=== PATIENT | female | born 1950 | race Caucasian/White ===

== ENCOUNTER 2024-02-05 13:20 | Outpatient (AMB) | payer MEDICARE, SELFPAY ==
--- NOTE | 2024-02-05 13:21 | A.OFFPC_ITS ---
Vital Signs 02/05/24 13:22 Height 5 ft 2 in Weight 143 lb 4 oz BMI 26.2 BP 132/60 Blood Pressure Location Rt brachial Position Sitting Pulse 92 Pulse Source Pulse Oximeter Pulse Oximetry (%) 100 Oxygen Delivery Method Room Air Intake Visit Reasons: [employer] Allergies No Known Allergies Allergy (Verified 02/05/24 13:24) Tobacco use date assessed: 02/05/24 Fall risk assessment: No Falls in past year Last assessed Fall Risk: 02/05/24 Dental Screening Dental Screen Date: 02/05/24 Did you have a dental visit in the last 12 months?: Yes Did you have a dental problem in the last 6 months where you did not have access to dental care?: No Was dental information given to patient?: Patient has dentist HPI HPI Comments History of Present Illness Details 73 year old female with a past medical h istory of OA, low back pain, seasonal allergies presenting for physical exam Chronic back pain: Saw Dr Ledesma. Underwent surgery Jan 2023. Still has issues with back pain. Has gained weight which she thinks is contributing to back pain Post menopausal hot flashes: On estradiol Preventive: Mammo: 12/2023 Cologuard 2021 s/p hysterectomy in 40s ROS CONSTITUTIONAL: Denies weight loss, fever and chills. HEENT: Denies changes in vision and hearing. RESPIRATORY: Denies SOB and cough. CV: Denies palpitations and CP GI: Denies abdominal pain, nausea, vomiting and diarrhea. : Denies dysuria and urinary frequency. MSK: as above. right knee pain SKIN: Denies rash and pruritus. NEUROLOGICAL: Denies headache PSYCHIATRIC: Denies recent changes in mood. PHYSICAL EXAM: GENERAL: Alert and oriented x 3. NAD EYES: EOMI. Anicteric. HENT: Moist mucous membranes. No scleral icterus. No cervical lymphadenopathy. LUNGS: Clear to auscultation bilaterally. CARDIOVASCULAR: Regular rate and rhythm. No murmur. No JVD. ABDOMEN: Soft, non-tender +bs EXTREMITIES: No edema. Non-tender. SKIN: No rashes or lesions. Warm. NEUROLOGIC: No focal neurological deficits. CN II-XII grossly intact PSYCHIATRIC: Cooperative. Appropriate mood and affect PFSH Surgical History H/O: hysterectomy H/O Spinal surgery Family History Father Leukemia Paternal Aunt Leukemia Paternal Aunt Hodgkins lymphoma Paternal Aunt Breast cancer Social History Household Members: Spouse Housing: House Alcohol intake: current Alcohol intake frequency: a few times a week Alcohol type: wine Patient Tobacco Use Status: Former Tobacco user Current occupational status: retired Cognitive needs: No Hearing needs: No Vision needs: Yes Questionnaire PHQ-9 Over the last 2 weeks, how often have you been bothered by any of the following problems? 1. Little interest or pleasure in doing things: not at all 2. Feeling down, depressed, or hopeless: not at all 3. Trouble falling or staying asleep, or sleeping too much: not at all 4. Feeling tired or having little energy: not at all 5. Poor appetite or overeating: not at all 6. Feeling bad about yourself - or that you are a failure or have let yourself or your family down: not at all 7. Trouble concentrating on things, such as reading the newspaper or watching television: not at all 8. Moving or speaking so slowly that other people could have noticed. Or the opposite - being so fidgety or restless that you have been moving around a lot more than usual: not at all 9. Thoughts that you would be better off or of hurting yourself in some way: not at all Total score: 0 Depression Screening Interpretation: Negative Depression Screening Done: Yes 04070 - PHQ-9 Billing: Yes Source: Developed by Drs. Rogelio Garza, Jennie Holloway, Jacob Rivas and colleagues, with an educational sj from [employer]. Thrive Questionnaire Date Thrive assessed: 02/05/24 I am a: Patient What is your living situation today?: I have a steady place to live Within the past 12 months, did the food you bought not last and you didn't have the money to get more?: Never true Within the past 12 months, did you worry whether your food would run out before you got money to buy more?: Never true Do you have trouble paying for medicines?: No Do you have trouble getting transportation to medical appointments?: No Do you have trouble paying your heating and electricity bill?: No Do you have trouble taking care of your child, family member or friend?: No Do you have trouble with day-to-day activities such as bathing, preparing meals, shopping, managing finances, etc.?: No Are you currently unemployed and looking for a job?: No Are you interested in more education?: No Please select the resources that you would like help with: None Currently or been in a relationship where the following occur: No concerns reported THRIVE Score: 0 AUDIT C Alcohol Use Questionnaire (AUDIT-C) 1. How often do you have a drink containing alcohol?: 4 or more times a week 2. How many drinks containing alcohol do you have on a typical day when you are drinking?: 1 or 2 3. How often do you have six or more drinks on one occasion?: Never Total Score: 4 TY-7 AMB Questionnaire TY-7 Date TY - 7 assessed: 02/05/24 Feeling nervous, anxious, or on edge: 1 = Several days Not being able to stop or control worryin = Not at all Worrying too much about different things: 1 = Several days Trouble relaxin = Several days Being so restless that it is hard to sit still: 0 = Not at all Becoming easily annoyed or irritable: 1 = Several days Feeling afraid as if something awful might happen: 0 = Not at all Total TY-7 score (0-4 normal; 5-9 mild; 10-14 moderate; 15-21 severe): 4 Source: Developed by Drs. Rogelio Garza, Jennie Holloway, Jacob Rivas and colleagues, with an educational sj from [employer]. TY-7 Assessment Billing TY-7 Assessment Tool: TY-7 Assessment 71773 Physical exam (Primary Care) Vital Signs: Last Vital Signs Pulse 92 02/05/24 13:22 BP 132/60 02/05/24 13:22 Pulse Ox 100 02/05/24 13:22 Oxygen Delivery Method Room Air 02/05/24 13:22 BMI result Body Mass Index 26.2 Tobacco/Smoking Status: Tobacco use Status Tobacco use date assessed 02/05/24 02/05/24 13:30 Patient Tobacco Use Status Former Tobacco user 12/09/24 13:30 PHQ-9: PHQ-9 Score PHQ-9: Total score 0 02/05/24 13:41 Depression Screening Interpretation: Negative Thrive Assessment: Date of Thrive Assessment Date Thrive assessed 02/05/24 02/05/24 13:30 Currently or been in a relationship where the following occur: No concerns reported Coding Level of Care Code Est Pt Prev Care >65y(05043) Diagnoses Physical exam Z00.00 Fatigue, unspecified type R53.83 Fatigue type: unspecified Chronic pain of right knee M25.561; G89.29 Chronicity: chronic Weight gain R63.5 Additional Codes TY-7 Assessment Billing - TY-7 Assessment Tool: TY-7 Assessment [id number] ([id number]) PHQ-9 - 24562 - PHQ-9 Billing: Yes ([id number]) Assessment & Plan Assessment & Plan (1) Physical exam: Code(s): Z00.00 - Encounter for general adult medical examination without abnormal findings Category: Medical Plan: Reestablish care Physical exam. Preventive measures reviewed (2) Fatigue: Code(s): R53.83 - Other fatigue Category: Medical Qualifiers: Fatigue type: unspecified Qualified Code(s): R53.83 - Other fatigue Plan: labs ordered (3) Right knee pain: Code(s): M25.561 - Pain in right knee Category: Medical Qualifiers: Chronicity: chronic Qualified Code(s): M25.561 - Pain in right knee; G89.29 - Other chronic pain Plan: stable. has increased with weight gain (4) Weight gain: Code(s): R63.5 - Abnormal weight gain Category: Medical Plan: wegovy sent Orders: Orders Complete Blood Count Auto Diff 02/05/24 M25.561 - Pain in right knee, R53.83 - Other fatigue, R63.5 - Abnormal weight gain, Z13.0 - Encounter for screening for diseases of the blood and blood-forming organs and certain disorders involving the immune mechanism Comprehensive Met. Panel 02/05/24 M25.561 - Pain in right knee, R53.83 - Other fatigue, R63.5 - Abnormal weight gain, Z13.0 - Encounter for screening for diseases of the blood and blood-forming organs and certain disorders involving the immune mechanism Lipid Panel 02/05/24 M25.561 - Pain in right knee, R53.83 - Other fatigue, R63.5 - Abnormal weight gain, Z13.0 - Encounter for screening for diseases of the blood and blood-forming organs and certain disorders involving the immune mechanism, Z13.220 - Encounter for screening for lipoid disorders TSH reflex Free T4 02/05/24 M25.561 - Pain in right knee, R53.83 - Other fatigue, R63.5 - Abnormal weight gain, Z13.0 - Encounter for screening for diseases of the blood and blood-forming organs and certain disorders involving the immune mechanism Referrals Cologuard Test Z12.11 - Encounter for screening for malignant neoplasm of colon, Z12.12 - Encounter for screening for malignant neoplasm of rectum Medications: New estradiol 0.5 mg PO DAILY 90 tabs 3RF Wegovy (semaglutide (weight loss)) administer weeks 1 through 4 of therapy 0.25 mg (0.5 mL) subcut QWEEK 2 mL 0RF NS R63.5 - Abnormal weight gain
[2024-02-05 13:22] VITALS: BP 132/60; PULSE 92; O2SAT 100; BMI 26.2
== END 2024-02-05 14:07 | disposition home or self-care (01) ==
PROVIDERS: PCP Internal Medicine; Visit Provider Internal Medicine
DX: R53.83 Other fatigue (principal); M25.561 Pain in right knee; G89.29 Other chronic pain; R63.5 Abnormal weight gain

== ENCOUNTER → 2024-02-05 13:20 | Outpatient (BNVA) | payer MEDICARE, SELFPAY | PROVIDERS: PCP Internal Medicine; Visit Provider Internal Medicine | DX: Z00.01 Encounter for general adult medical examination with abnormal findings (principal); R53.83 Other fatigue; G89.29 Other chronic pain; M25.561 Pain in right knee; R63.5 Abnormal weight gain | CPT/HCPCS: 96127; 99212 ==

== ENCOUNTER 2025-02-07 11:57 | Outpatient (AMB) | payer MEDICARE, SELFPAY ==
--- NOTE | 2025-02-07 12:00 | MHC.PC.OV ---
Intake Visit Reasons: mawv Allergies No Known Allergies Allergy (Verified 02/05/24 13:24) Tobacco use date assessed: 02/05/24 Dental Screening Dental Screen Date: 02/05/24 [facility] Surgical History H/O: hysterectomy H/O Spinal surgery Family History Father Leukemia Paternal Aunt Leukemia Paternal Aunt Hodgkins lymphoma Paternal Aunt Breast cancer Social History Household Members: Spouse Housing: House Alcohol intake: current Alcohol intake frequency: a few times a week Alcohol type: wine Patient Tobacco Use Status: Former Tobacco user Current occupational status: retired Cognitive needs: No Hearing needs: No Vision needs: Yes Questionnaire Thrive Questionnaire Date Thrive assessed: 02/05/24 AUDIT C Alcohol Use Questionnaire (AUDIT-C) 2. How many drinks containing alcohol do you have on a typical day when you are drinking?: 1 or 2 3. How often do you have six or more drinks on one occasion?: Never Total Score: 0 TY-7 AMB Questionnaire TY-7 Date TY - 7 assessed: 02/05/24 Source: Developed by Drs. Rogelio Garza, Jennie Holloway, Jacob Rivas and colleagues, with an educational sj from [employer]. Physical exam (Primary Care) Tobacco/Smoking Status: Tobacco use Status Tobacco use date assessed 02/05/24 02/05/24 13:30 Patient Tobacco Use Status Former Tobacco user 02/05/24 13:30 Thrive Assessment: Date of Thrive Assessment Date Thrive assessed 02/05/24 02/05/24 13:30 Coding
--- NOTE | 2025-02-07 12:04 | A.OFFVIS_ITS ---
Intake Vital Signs 02/07/25 12:19 Height 5 ft 2 in Weight 137 lb 8 oz BMI 25.1 BP 134/70 Blood Pressure Location Lt brachial Position Sitting Respiration 14 Pulse 76 Pulse Source Pulse Oximeter Temp 97.6 F Temp Source Oral Pulse Oximetry (%) 96 Oxygen Delivery Method Room Air Intake Visit Reasons: mawv Intake Note: Medical wellness visit. Healthcare Insurance Sales Agent Required: No Allergies No Known Allergies Allergy (Verified 02/07/25 12:38) Medication List - Last Reconciled 02/07/25 by JACQUELINE AmayaP-BC estradiol 0.5 mg PO DAILY meloxicam 15 mg PO DAILY timolol maleate 0.5% drps ophthalmic (eye) triamcinolone acetonide 0.1% 1 appl topical DAILY HPI HPI Comments History of Present Illness Details Here today for AWV. The Medicare Annual Wellness Visit (AWV) is a yearly appointment with a health professional to identify health risks and help reduce them and to create or update a personalized prevention plan. During a Medicare AWV, health professionals should also review any current opioid prescriptions, detect any cognitive impairment, and establish or update medical and family history. 74 year old female with a past medical h istory of OA, low back pain s/p back surgery 2022 Dr Ledesma, postmenopausal hot flashes, seasonal allergies, glaucoma, urinary incont SurgHx: s/p back surgery, Yobani FHx: Y SocHx: Y Health Maintenance: See scanned preventative medicine assessment with personalized health plan and screening schedule. Colon: cologaurd 2024 negative Mammo 12/2023, has appt 02/2025 DEXA reports normal a few years ago PAP NA Vaccines: Tdap 2021, Shingles UTD, declined flu 02/07/25, needs Prevnar 20 & advised to get at pharmacy AAA screen: NA EKG: NSR Te[place]ak of Care: as documented in chart Visual Acuity: wears glasses last exam 11/2024 Hearing Screening: no issues ACP: does not have HCP or MOLST, forms provided today along with education and 5 wishes Dietary/Nutrition/Exercise Edu provided: Y During the course of the visit the patient was educated and counseled about appropriate screening and preventative services. Patient instructions were provided to the patient in written or electronic format. I have reviewed and verified the above information. History of Present Illness The patient is a 74-year-old female presenting for an annual Medicare wellness visit. Bilateral knee osteoarthritis: - The patient has bilateral knee osteoar thritis, described as [id number]. - She is currently in the middle of a se adriana of gel shot injections, with one remaining. - The pain limits her ability to perform exercises like squats and walking with friends. - She plans to have knee replacement tomás jose next year, possibly in February. - She takes meloxicam as needed for the pain. Low back pain, status post surgery: - The patient has a history of low back pain and underwent back surgery in 2022. Postmenopausal symptoms: - She experiences severe postmenopausal hot flashes, for which she uses estradiol. - The estradiol has been effective in ma naging her symptoms. - She had a total hysterectomy in her 40 s and stopped seeing a supervisor stone at age 72. Glaucoma: - The patient has glaucoma and uses estela lol eye drops. - She had her last eye exam about two mo nths ago. Urinary incontinence: - The patient reports some urinary incon tinence and leakage, which she finds embarrassing. - She sometimes wears a pad for protecti on. - She also experiences symptoms of urina ry urgency. Weight management: - The patient has experienced weight flu ctuations, gaining weight last year, then losing some, and gaining it back again. - Her current weight is 137 pounds. - Her ability to exercise is limited by her knee pain. - A prior request for Wegovy was denied by her insurance. Past Medical History - Osteoarthritis - Low back pain - Postmenopausal hot flashes - Seasonal allergies - Glaucoma Past Surgical History - Back surgery in 2022 - Total hysterectomy in her 40s Social History - Employment: The patient is retired. 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 - Family status: She has a and g randchildren. - Vaccinations: Declines annual influenz a vaccination and has not received the recent COVID-19 vaccine. - Functional Status: Reports knee pain l imits her ability to walk, exercise, and garden. Health Maintenance - Refilled prescriptions for estradiol a nd triamcinolone 0.1% ointment. - Advised to obtain the Pneumococcal 20 vaccine at the pharmacy. - Patient declines influenza and COVID-1 9 vaccines at this time. - Patient will proceed with scheduled ma mmogram in February. Review of Systems - Constitutional: Denies depressive symp toms but questions benefit of an antidepressant. - Endocrine: Reports severe postmenopaus al hot flashes, which are well- controlled with estradiol. - Musculoskeletal: Reports bilateral kne e pain, described as [id number], limiting activity. - Genitourinary: Reports urinary inconti nence with leakage and urgency. - Gastrointestinal: Reports normal bowel movements. - Neurological: Reports memory that com es and goes but is fine now. - Eyes: Reports glaucoma. - Ears: Denies any problems or concerns with hearing. Physical Exam General: Well developed, well nourished, in no acute distress. Appears stated age. Head: Normocephalic, atraumatic. Eyes: Pupils are equal, round and reactive to light and accommodation. Conjunctivae are clear. Scleras nonicteric bilat. Vision grossly normal. Patient has glaucoma and is on timolol. Ears: TMs clear AU, EACS WNL. Hearing is very good. Nose: Patent, without discharge. Neck: No carotid bruit bilat. Supple, no adenopathy or thyromegaly. Breast: Edu on SBE Lungs: Clear to auscultation bilaterally. No rales, rhonchi or wheeze noted. Good air flow in all zavala. Heart: Regular rate and rhythm. No murmurs, click, rubs or gallops are noted. EKG shows normal sinus rhythm. Abdomen: Bowel sounds present in all quadrants. The abdomen is soft, nontender, with no masses or organomegaly noted. No hernias are noted. : Deferred. Reviewed recommendations for routine LAND ACQUISITION MANAGER. Patient reports urinary incontinence Pulses: Peripheral pulses are equal and palpable bilaterally. Extremities: No clubbing, cyanosis nor edema is noted. Patient reports visible veins on the left side but no associated pain. Neurologic: Gait and station normal. Cranial Nerves 2-12 intact. Motor strength grossly symmetrical and intact. No sensory loss. Balance normal. Skin: No rashes, ulcers, or lesions noted. Turgor is good. Skin color is good. Hair and nails are without abnormalities. Sterling angiomas noted. Psych: Normal eye contact, affect and mood appropriate, and normal interactions. Patient is alert and appropriate to context. Results - Labs: A1c is 5.1%. - Tests and Diagnostics: EKG shows wong l sinus rhythm. Medical Decision Making The patient is a 74-year-old female here for her Medicare annual wellness visit. Her primary issues include significant bilateral knee osteoarthritis, for which she is receiving gel injections and is planning a total knee replacement next year. Pain from this condition limits her activity, which complicates weight management. She reports symptoms of urinary incontinence with urgency, which is bothersome. Given her symptoms and preference, we will initiate a trial of Myrbetriq, starting at the lowest dose. If this is not effective or tolerated, a referral to urology will be made, as many new treatments are available. The patient is up to date on most health maintenance but is due for a Pneumococcal 20 vaccine, which she will be advised to get at a pharmacy. Screening labs including a CMP, lipid panel, and vitamin D will be performed today to monitor her overall health. Advance care planning was discussed, and the patient was provided with resources to complete a healthcare proxy and consider her wishes. She inquired about routine antidepressant use after age 60, but as there is no guideline and she does not report depressive symptoms, this is not indicated; instead, we will review her labs for other contributors to her symptoms. She reports friend and sister are on meds they like, she will inquire about this and if interested in starting, send PCP a message. Plan Health Maintenance: - The patient is taking triamcinolone 0. 1% ointment, which will be refilled. - Lab work is planned for today to scree n for cholesterol and kidney function. - Her last bone density scan was a coupl e of years ago and was normal. - A mammogram is scheduled for February. - She has never had a flu shot and decli ace it today. - She has not received the recent COVID- 19 vaccine. - She has had two of the three recommend ed pneumococcal vaccines and is due for the Pneumovax 20. - Her tetanus and shingles vaccinations are up-to-date. - Her last Cologuard was in 2024 and was negative. - Her A1c today was 5.1%, indicating no diabetes or prediabetes. - Today's EKG showed a normal sinus rhyt hm. - She has a history of low iron and anem ia. 1. Medicare Annual Wellness Visit - Reviewed health maintenance, including vaccinations and cancer screenings. - Ordered screening labs including CMP, lipid panel, and vitamin D. - Performed a physical exam. - Discussed and provided resources for a dvance care planning, including healthcare proxy and the Five Wishes booklet. 2. Osteoarthritis Of Knee, Bilateral - Patient is currently receiving gel inj ections for symptomatic relief. - She continues to use meloxicam as need ed for pain. - Patient is considering total knee repl acement surgery next year. 3. Urinary Incontinence - Will start a trial of Myrbetriq 25 mg once daily. - Discussed side effects, primarily dry mouth. - Advised patient to stop the medication if side effects are intolerable and message for a urology referral if needed. - Prescription sent to [facility]. Patient Instructions - Your prescriptions for triamcinolone o intment and Myrbetriq have been sent to your pharmacy. - Please go to the lab in the clinic [facility] to have your blood drawn for a CMP (to check kidney function), a cholesterol panel, and a vitamin D level. - Take one tablet of Myrbetriq 25 mg by mouth once a day for your bladder symptoms. This may cause dry mouth. If the side effect is too bothersome, or if the medication is not helping, please stop taking it and send us a message through the patient portal. - When you are at the pharmacy, please a sk for the Pneumovax 20 (Pneumococcal 20) vaccine. This is an important shot to protect you against pneumonia. - Continue taking your current medicatio ns, including estradiol for hot flashes, timolol for glaucoma, and meloxicam as needed for knee pain. - Please review the paperwork we gave yo u about advance directives (The Five Wishes) and a healthcare proxy. Consider completing these forms and bring them to your next visit. - Keep your appointment for a mammogram in February. - We will send your lab results to you t julianna the patient portal. Consent Patient was informed and verbally consented to the use of an ambient scribe for clinic note documentation during this visit. An additional 30 minutes was spent addressing the problem(s) noted at todays visit. This includes time spent before the visit reviewing the chart, time spent during the visit, and time spent after the visit on documentation reviewing laboratory results, diagnostic imaging, medications, performing a medically necessary evaluation, counseling on diagnoses, care coordination, ordering appr opriate tests, ordering appropriate medications, review of tests performed by other providers, reporting test results with the patient, communication with other healthcare providers. [facility] Medical History (Updated 02/07/25 @ 14:49 by DENISSE Amaya) Medicare annual wellness visit, subsequent (~02/07/25) Surgical History (Updated 02/06/25 @ 10:15 by DENISSE Amaya) H/O Spinal surgery H/O: hysterectomy Family History Father Leukemia Paternal Aunt Leukemia Paternal Aunt Hodgkins lymphoma Paternal Aunt Breast cancer Social History Household Members: Spouse Housing: House Alcohol intake: current Alcohol intake frequency: a few times a week Alcohol type: wine Patient Tobacco Use Status: Former Tobacco user Current occupational status: retired Cognitive needs: No Hearing needs: No Vision needs: Yes Questionnaire Medicare Wellness Checkup What [age] What gender do you identify with?: female During the past 4 weeks, how much have you been bothered by emotional problems such as feeling anxious, depressed, irritable, sad or downhearted, and blue?: not at all During the past 4 weeks, has your physical & emotional health limited your social activities with family, friends, neighbors, or groups?: not at all During the past 4 weeks, how much bodily pain have you generally had?: moderate pain During the past 4 weeks, was someone available to help you if you needed & wanted help?: yes, as much as I wanted During the past 4 weeks, what was the hardest physical activity you could do for at least 2 minutes?: moderate Can you get to places out of walking distance without help? (For eg., can you travel alone on buses, taxis or drive your car?): Yes Can you go shopping for groceries or clothes without someone's help?: Yes Can you prepare your own meals?: Yes Can you do your housework without help?: Yes Because of any health problems, do you need the help of another person with your personal care needs such as eating, bathing, dressing or getting around the house?: No Can you handle your own money without help?: Yes During the past 4 weeks, how would you rate your health in general?: fair During the past 4 weeks how have things been going for you?: good & bad parts about equal Are you having difficulties driving your car?: no Do you always fasten your seat belt when you are in a car?: yes, usually During past 4 weeks, have you been bothered by the following: never: Falling or dizzy when standing up, Sexual problems?, Trouble eating well?, Teeth or denture problems?, Problems using the telephone? and Tiredness or fatigue? Have you fallen 2 or more times in the past year?: No Are you afraid of falling?: No Are you a smoker?: no During the past 4 weeks, how many drinks of wine, beer, or other alcoholic beverages did you have?: 2-5 drinks per week Do you exercise for about 20 minutes 3 or more times a week?: yes, some of the time Have you been given information to help with the following?: yes: Hazards in your house that might hurt you? and yes: Keeping track of your medications? How often do you have trouble taking medicines the way you have been told to take them?: I always take medicine as prescribed How confident are you that you can control & manage most of your health problems?: very confident What is your race?: White Activity of Daily Living Bathing - sponge bath, tub bath or shower: receives no assistance (gets in/out by self, if usual bathing means Dressing - getting clothes from closets & drawers, including inner/outer garments & fasteners.: gets clothes & gets completely dressed without help Toileting - going to the 'toilet room' for urine/bowel elimination & cleaning self/arranging clothes: goes to toilet room, cleans self, arranges clothes without help Transfer: moves in & out of bed and chair without help (may use support object) Continence: controls urination/bowel movements completely by self Feeding: feeds self without help Total Score: 0 Information obtained from: patient Using telephone: independent Traveling: independent Shopping: independent Preparing meals: independent Housework: independent Taking medicine: independent Managing money: independent PHQ-9 Over the last 2 weeks, how often have you been bothered by any of the following problems? 1. Little interest or pleasure in doing things: not at all 2. Feeling down, depressed, or hopeless: not at all 3. Trouble falling or staying asleep, or sleeping too much: not at all 4. Feeling tired or having little energy: not at all 5. Poor appetite or overeating: not at all 6. Feeling bad about yourself - or that you are a failure or have let yourself or your family down: not at all 7. Trouble concentrating on things, such as reading the newspaper or watching television: several days 8. Moving or speaking so slowly that other people could have noticed. Or the opposite - being so fidgety or restless that you have been moving around a lot more than usual: not at all 9. Thoughts that you would be better off or of hurting yourself in some way: not at all Total score: 1 Depression Screening Interpretation: Negative Depression Screening Done: Yes 83715 - PHQ-9 Billing: Yes Source: Developed by Drs. Rogelio Garza, Jennie Holloway, Jacob Rivas and colleagues, with an educational sj from [email or web address]. Physical Exam Vital Signs: Last Vital Signs Temp 97.6 F 02/07/25 12:19 Pulse 76 02/07/25 12:19 Resp 14 02/07/25 12:19 BP 134/70 02/07/25 12:19 Pulse Ox 96 02/07/25 12:19 Oxygen Delivery Method Room Air 02/07/25 12:19 BMI result Body Mass Index 25.1 Office Procedures Vision Screening Right Eye: 20/40 Left Eye: 20/20 Bilateral: 20/20 96240 - Vision Screening EKG [id number]-[id number], Complete Results AMB Hemoglobin A1c AMB Hemoglobin A1c 5.1 % Last Edit by Charo Mary CMA on 02/07/25 12:26 Results Reviewed Results Reviewed: Laboratory Last Values Hgb A1c (Clinic) 5.1 % (4.0-6.0) 02/07/25 12:24 Assessment & Plan Assessment & Plan (1) Medicare annual wellness visit, subsequent: Onset Date: ~02/07/25 Code(s): Z00.00 - Encounter for general adult medical examination without abnormal findings (2) History of colonoscopy: Onset Date: ~2024 Comment: negative cologaurd 2021 & 2024 Code(s): Z98.890 - Other specified postprocedural states (3) Screening for hyperlipidemia: Code(s): Z13.220 - Encounter for screening for lipoid disorders (4) Menopause: Code(s): Z78.0 - Asymptomatic menopausal state (5) Laboratory exam ordered as part of routine general medical examination: Code(s): Z00.00 - Encounter for general adult medical examination without abnormal findings (6) Influenza vaccination declined: Onset Date: ~02/07/25 Code(s): Z28.21 - Immunization not carried out because of patient refusal (7) Urinary incontinence: Code(s): R32 - Unspecified urinary incontinence Qualifiers: Urinary Incontinence type: mixed stress and urge incontinence Qualified Code(s): N39.46 - Mixed incontinence (8) Glaucoma: Code(s): H40.9 - Unspecified glaucoma Qualifiers: Glaucoma type: other (9) History of mammogram: Onset Date: ~12/2023 Code(s): Z92.89 - Personal history of other medical treatment Plan . Orders: Orders AMB Hemoglobin A1c Today Z00.00 - Encounter for general adult medical examination without abnormal findings Comprehensive Met. Panel Today Z00.00 - Encounter for general adult medical examination without abnormal findings, Z13.220 - Encounter for screening for lipoid disorders, Z78.0 - Asymptomatic menopausal state Vitamin D 25-OH Total Today Z00.00 - Encounter for general adult medical examination without abnormal findings, Z13.220 - Encounter for screening for lipoid disorders, Z78.0 - Asymptomatic menopausal state AMB Vision Screening Today Z00.00 - Encounter for general adult medical examination without abnormal findings Lipid Panel Today Z00.00 - Encounter for general adult medical examination without abnormal findings, Z13.220 - Encounter for screening for lipoid disorders, Z78.0 - Asymptomatic menopausal state Medications: New triamcinolone acetonide 0.1% 1 appl topical DAILY 15 grams 2RF mirabegron ER (Myrbetriq) 25 mg PO DAILY 90 tabs 0RF Discontinued Wegovy (semaglutide (weight loss)) administer weeks 1 through 4 of therapy Discontinued Reason: Insurance Denied 0.25 mg (0.5 mL) subcut QWEEK 2 mL 0RF NS R63.5 - Abnormal weight gain Patient Instructions: Health screenings for women You should visit your health care provider from time to time, even if you are healthy. The purpose of these visits is to: Screen for medical issues Assess your risk for future medical problems Encourage a healthy lifestyle Update vaccinations and other preventive care services Help you get to know your provider in case of an illness Information Even if you feel fine, you should still see your provider for regular checkups. These visits can help you avoid problems in the future. For example, the only way to find out if you have high blood pressure is to have it checked regularly. High blood sugar and high cholesterol levels also may not have any symptoms in the early stages. A simple blood test can check for these conditions. There are specific times when you should see your provider or receive specific health screenings. The [place] Preventive Services Task Force publishes a list of recommended screenings. Below are screening guidelines for women ages 18 to 39. BLOOD PRESSURE SCREENING Your blood pressure should be checked at least once every 3 to 5 years if: Your blood pressure is in the normal range (top number less than 120 mm Hg and bottom number less than 80 mm Hg) You don't have risk factors for high blood pressure Ask your provider if you need your blood pressure checked more often if: The top number is 120 to 129 mm Hg or the bottom number is 70 to 79 mm Hg You have diabetes, heart disease, kidney problems, are overweight, or have certain other health conditions You have a first-degree relative with high blood pressure You are Black You had high blood pressure during a If the top number is 130 mm Hg or greater or the bottom number is 80 mm Hg or greater, this is considered stage 1 hypertension. Schedule an appointment with your provider to learn how you can reduce your blood pressure. Watch for blood pressure screenings in your area. Ask your provider if you can stop in to have your blood pressure checked. BREAST CANCER SCREENING Experts do not agree about the benefits of breast self-exams in finding breast cancer or saving lives. Talk to your provider about what is best for you. A screening mammogram is not recommended for most women under age 40. Your provider may discuss and recommend mammograms, MRI scans, or ultrasounds if you have an increased risk for breast cancer, such as: A mother or sister who had breast cancer at a young age (most often starting screening earlier than the age the close relative was diagnosed) You carry a high-risk genetic marker CERVICAL CANCER SCREENING Cervical cancer screening should start at age 21 years unless your provider advises otherwise. After the first test: Women ages 21 through 29 should have a Pap test every 3 years. Exoprts do not agree on whether HPV testing is recommended for this age group. Women ages 30 through 65 should be screened with either a Pap test every 3 years or the HPV test every 5 years or both tests every 5 years (called cotesting ). Women who have been treated for precancer (cervical dysplasia) should continue to have Pap tests for 20 years after treatment or until age 65, whichever is katty tu. If you have had your uterus and cervix removed (total hysterectomy), and you have not been diagnosed with cervical cancer or precancer (high grade cervical neoplasia), you do not need cervical cancer screening. CHOLESTEROL SCREENING Cholesterol screening should begin at: Age 45 for women with no known risk factors for coronary heart disease Age 20 for women with known risk factors for coronary heart disease Repeat cholesterol screening should take place: Every 5 years for women with normal cholesterol levels More often if changes occur in lifestyle (including weight gain and diet) More often if you have diabetes, heart disease, kidney problems, or certain other conditions DIABETES SCREENING You should be screened for diabetes starting at age 35 and then repeated every 3 years if you have no risk factors for diabetes. Screening may need to start earlier and be repeated more often if you have other risk factors for diabetes, such as: You have a first degree relative with diabetes. You are overweight or have obesity. You have high blood pressure, prediabetes, or a history of heart disease. Screening for diabetes should be done if you are planning to become and you are overweight and have other risk factors such as high blood pressure. DENTAL EXAM Go to the dentist once or twice every year for an exam and cleaning. Your dentist will evaluate if you need more frequent visits. EYE EXAM Have an eye exam every 5 to 10 years before age 40. If you have vision problems, have an eye exam every 2 years or more often if recommended by your provider. You should have an eye exam that includes an examination of your retina (back of your eye) at least every year if you have diabetes. IMMUNIZATIONS Commonly needed vaccines include: Flu shot: get one every year. COVID-19 vaccine: ask your provider what is best for you. Tetanus-diphtheria and acellular pertussis (Tdap) vaccine: have one at or after age 19 as one of your tetanus-diphtheria vaccines if you did not receive it as an adolescent. Tetanus-diphtheria: have a booster (or Tdap) every 10 years. Varicella vaccine: receive 2 doses if you never had chickenpox or the varicella vaccine. Hepatitis B vaccine: receive 2, 3, or 4 doses, depending on your exact circumstances. Measles, mumps, and rubella (MMR) vaccine: receive 1 to 2 doses if you are not already immune to MMR. Your provider can tell you if you are immune. Ask your provider about the human papillomavirus (HPV) vaccine if: You have not received the HPV vaccine in the past You have not completed the full vaccine series (you should catch up on this shot) Ask your provider if you should receive other immunizations if you have certain health problems that increase your risk for some diseases such as pneumonia. INFECTIOUS DISEASE SCREENING Women who are sexually active should be screened for chlamydia and gonorrhea up until age 25. Women 25 years and older should be screened for chlamydia and gonorrhea if at high risk. Screening for hepatitis C: All adults ages 18 to 79 should get a one-time test for hepatitis C. people should be screened at every . Screening for human immunodeficiency virus (HIV): All people ages 15 to 65 should get a one-time test for HIV. Depending on your lifestyle and medical history, you may also need to be screened for infections such as syphilis and HIV, as well as other infections. PHYSICAL EXAM All adults should visit their provider from time to time, even if they are healthy. The purpose of these visits is to: Screen for disease Assess your risk of future medical problems Encourage a healthy lifestyle Update your vaccinations and other preventive care services Maintain a relationship with a provider in case of an illness Your height, weight, and BMI should be checked at every exam. During your exam, your provider may ask you about: Depression and anxiety Diet and exercise Alcohol and tobacco use Safety issues, such as using seat belts, smoke detectors, and intimate partner violence Your medicines and risk for interactions SKIN SELF-EXAM Your provider may check your skin for signs of skin cancer, especially if you're at high risk, such as if you: Have had skin cancer before Have close relatives with skin cancer Have a weakened immune system OTHER SCREENING Talk with your provider about colon cancer screening if you have a strong family history of colon cancer or polyps, or if you have had inflammatory bowel disease or polyps yourself. Routine bone density screening of women under 40 is not recommended. Quality Reporting (2019) Adult ([facility] 138/04/20/68) Smoking risk assessment performed?: Yes Patient Tobacco Use Status: Former Tobacco user Depression screening performed: Yes Screen Results: Yes Negative screen Systolic BP not done?: No BMI screening not done: No Sexual Activity Screening ([facility] 153) Sexually active?: Yes Immunizations ([facility] 147, 117) Annual Influenza Vaccine: Yes Measles Antibody Test: No Mumps Antibody Test: No Rubella Antibody Test: No Varicella Antibody Test: No Anti Hepatitis A IgG Antigen test: No Anti Hepatitis B Virus Surface Ab test: No Fall Risk Screening ([facility] 139) Last assessed Fall Risk: 02/07/25 Fall risk assessment: No Falls in past year Dementia Assessment ([facility] 149) Cognitive assessment recorded: Yes Assessment of cognition with standardized tool: Yes Depression/Bipolar (159/160/161/177) PHQ-9: Total score: 1 Ophthalmol:Cataracts Visual Acuity (133) Visual acuity exam performed: Yes Coding Level of Care Code Medicare Subsequent (G0439) Est Pt Level 4 (08975) Diagnoses Medicare annual wellness visit, subsequent Z00.00 History of colonoscopy Z98.890 Screening for hyperlipidemia Z13.220 Menopause Z78.0 Laboratory exam ordered as part of routine general medical examination Z00.00 Influenza vaccination declined Z28.21 Mixed stress and urge urinary incontinence N39.46 Urinary Incontinence type: mixed stress and urge incontinence Glaucoma H40.9 Glaucoma type: other History of mammogram Z92.89 CPT Codes Advance Care Planning - Time spent: 16-45 minutes ([id number]) Vision Screening - Vision Screenin - Vision Screening ([id number]) EKG - CPT: 51796-[id number], Complete ([id number]) Additional Codes PHQ-9 - 88225 - PHQ-9 Billing: Yes ([id number]) Advance Care Planning Advance Care Planning discussion: Exists, not on file Date of discussion: 02/07/25 Who was present: self Forms completed: Health Care Proxy, MOLST and Living will Time spent: 16-45 minutes Actual minutes spent: 16
[2025-02-07 12:19] VITALS: BP 134/70; PULSE 76; RESP 14; TEMP 36.4; O2SAT 96; BMI 25.1
== END 2025-02-07 13:04 | disposition home or self-care (01) ==
LOC: HO.HMCFM 11:58
PROVIDERS: PCP Internal Medicine; Visit Provider Nurse Practitioner Family
DX: Z00.00 Encounter for general adult medical examination without abnormal findings (principal); N39.46 Mixed incontinence; H40.9 Unspecified glaucoma; Z78.0 Asymptomatic menopausal state; Z28.21 Immunization not carried out because of patient refusal

== ENCOUNTER 2025-02-07 11:57 | Outpatient (REF) | payer MEDICARE, SELFPAY ==
[2025-02-07 15:40] LABS: Alanine Aminotransferase 25 U/L (0-31); Albumin Level 4.3 g/dL (3.5-5.0); Alkaline Phosphatase 45 U/L (39-117); Anion Gap 11 (12-20); Aspartate Amino Transferase 35 U/L (5-31); Blood Urea Nitrogen 19 mg/dL (9-16); Calcium 9.0 mg/dL (8.4-10.2); Carbon Dioxide 27 mmol/L (22-29); Chloride 105 mmol/L (96-108); Cholesterol 212 mg/dL (<200); Estimated Glomerular Filt Rate > 60; HDL Cholesterol 89 mg/dL (>40); Potassium 3.9 mmol/L (3.3-5.1); Sodium 139 mmol/L (135-145); Total Protein 6.4 g/dL (6.5-8.0); Triglycerides 55 mg/dL (<150)
== END 2025-02-07 11:58 | disposition home or self-care (01) ==
LOC: HO.WFDLDS 11:57
PROVIDERS: PCP Internal Medicine; Visit Provider Nurse Practitioner Family
DX: Z00.00 Encounter for general adult medical examination without abnormal findings (principal); N39.46 Mixed incontinence; H40.9 Unspecified glaucoma; R63.5 Abnormal weight gain; Z68.25 Body mass index [BMI] 25.0-25.9, adult; M17.0 Bilateral primary osteoarthritis of knee; M54.50 Low back pain, unspecified; N95.1 Menopausal and female climacteric states; Z13.220 Encounter for screening for lipoid disorders; Z13.1 Encounter for screening for diabetes mellitus; Z13.6 Encounter for screening for cardiovascular disorders; Z13.31 Encounter for screening for depression
CPT/HCPCS: 36415; 80053; 80061; 82306; 83036; 96127; 99212; 99497; G0404